=== PATIENT | female | born 1970 | race Caucasian/White ===

== ENCOUNTER 2016-08-17 06:51 | Emergency (ER) | payer SELFPAY ==
[2016-08-17 07:17] VITALS: TEMP 98; BMI 49.0
--- NOTE | 2016-08-17 07:25 | EDPRACDOC ---
- General Information Chief Complaint: Flu-Like Symptoms Stated Complaint: COUGH Time Seen by Provider: 08/17/16 07:22 Information Source: Patient Home Medications: Home Medications Warfarin Sodium [Coumadin] 3 mg PO DAILY 09/03/15 Multivitamin [Multivitamins] 2 each PO DAILY 12/24/15 Albuterol Sulfate [Proventil Hfa] 200 puff INH Q6 #1 inhaler 12/26/15 Levofloxacin [Levaquin] 750 mg PO DAILY #5 tablet 12/26/15 Allergies/Adverse Reactions: Allergies Allergy/AdvReac Type Severity Reaction Status Date / Time No Known Allergies Allergy Verified 08/17/16 07:17 - History of Present Illness Onset: 1 WEEK HPI: PT PRESENTS TO ED VIA AMBULANCE. C/O CHILLS SINCE LAST NIGHT. NO FEVER. NO PAIN. NO N/V OR SOB. PT REPORTS SHE IS SCARED. PT CALLED HER OB AND WAS TOLD TO COME TO ER. PT DELIVERED AT 27 WEEKS IN MARCH. HAS HAD 2 D&C'S. SOME TYPE OF BACTERIA CULTURED IN UTERUS. HAVING REPEATED BY HER OB. PT HAS CHRONIC LOWER ABDOMINAL PAIN SINCE DELIVERY. NO NEW URINARY SYMPTOMS. PT IS BREAST FEEDING. NO NEW BREAST PAIN. DOES HAVE YEAST ON BREASTS. ED Past Medical History - History Reviewed Yes Nurses notes reviewed and agree except as marked - Patient Medical History Respiratory History: Reports: Pneumonia (now), Pulmonary Embolism. Denies: COPD Psychological History: Denies: Depression, Substance Use Disorder - Family Medical History Reports: Hypertension (mother), Diabetes (mother type 2) - Social Medical History Smoking Status: Never smoker Social History: Denies: Substance Use Disorder EDM Review of Systems - Review of Systems ROS Negative Except as Marked: Yes All systems reviewed and were negative except as marked Constitutional: Chills. negative: Fever Eyes: No Symptoms Reported - Physical Exam Constitutional: Alert (Awake), No apparent distress Oriented to: Time, Person, Place Last recorded Vital Signs: Last Vital Signs Temp 98.0 F 08/17/16 07:13 Pulse 95 08/17/16 07:13 Resp 18 08/17/16 07:13 BP 155/89 08/17/16 07:13 Pulse Ox 95 08/17/16 07:13 Oxygen Pulse Oxygen Saturation 95 O2 Device Room Air Oxygen Flow Rate Fraction of Inspired Oxygen ( FIO2) - HEENT Head: Normal ( normocephalic) Eye Exam: Normal (PERRL, EOMI, Sclera white) Oropharynx: Normal (Pharynx:Moist without exudate,Gums-no swelling) Nose: No Symptoms Reported (septum midline) Neck: Normal (FROM, trachea at midline) - Respiratory/Cardiovascular Respiratory: Normal - CTA (BBS clear to auscultation without adventitious sounds ) Cardiovascular: Normal (RRR without murmur, gallop or rub) - GI Auscultation: Normal (NABS) Palpation: Normal (Soft,No rebound or guarding, non distended) Tenderness: Non tender Atkins's Sign: Negative - Musculoskeletal Back: Normal (Non-Tender) Extremities: Normal (Normal tone, Pulses 2+ No cyanosis or edema, FROM) - Integumentary Skin: Normal, Warm, Dry Lymphatics: Normal (no adenopathy) - Neurologic Memory Impaired: Normal Motor Function: Normal (Normal tone, Pulses 2+ No cyanosis or edema, FROM) Cranial Nerve: Normal (CN II-X11 intact sensation, strength 5/5) Cerebellar: Normal Mood Description: Normal Perception: Normal
--- NOTE | 2016-08-17 07:38 | EDPRACDOC ---
- General Information Chief Complaint: Flu-Like Symptoms Stated Complaint: COUGH Time Seen by Provider: 08/17/16 07:22 Information Source: Patient Home Medications: Home Medications Warfarin Sodium [Coumadin] 3 mg PO DAILY 09/03/15 Multivitamin [Multivitamins] 2 each PO DAILY 12/24/15 Albuterol Sulfate [Proventil Hfa] 200 puff INH Q6 #1 inhaler 12/26/15 Levofloxacin [Levaquin] 750 mg PO DAILY #5 tablet 12/26/15 Benzonatate [Tessalon Perle] 100 mg PO TID #30 capsule 08/17/16 Nitrofurantoin [Macrobid] 100 mg PO BID #10 cap 08/17/16 Allergies/Adverse Reactions: Allergies Allergy/AdvReac Type Severity Reaction Status Date / Time No Known Allergies Allergy Verified 08/17/16 07:17 - History of Present Illness Onset: 1 WEEK HPI: COUGHING, AND BECAUSE OF COUGH PT HAS HEADACHE. ABOUT 3 DAYS DURATION. YESTERDAY AND LAST NIGHT COULD BARELY SLEEP. THICK WHITISH SPUTUM. NO FEVER. DOES NOT SMOKE. H/O PE 5 YEARS AGO. FOLLOWED AT [facility]. ON COUMADIN. PT DENIES SOB. Shortness of Breath: None Cough: Reports: Productive, White ED Past Medical History - History Reviewed Yes Nurses notes reviewed and agree except as marked - Patient Medical History Respiratory History: Reports: Pneumonia (now), Pulmonary Embolism. Denies: COPD Psychological History: Denies: Depression, Substance Use Disorder - Family Medical History Reports: Hypertension (mother), Diabetes (mother type 2) - Social Medical History Smoking Status: Never smoker Social History: Denies: Substance Use Disorder EDM Review of Systems - Review of Systems ROS Negative Except as Marked: Yes All systems reviewed and were negative except as marked Constitutional: No Symptoms Reported Respiratory: Cough Cardiovascular: No Symptoms Reported Gastrointestinal: No Symptoms Reported Genitourinary: No Symptoms Reported Neurological: Headache Musculoskeletal: No Symptoms Reported Integumentary: No Symptoms Reported - Physical Exam Constitutional: Alert (Awake), No apparent distress Oriented to: Time, Person, Place Last recorded Vital Signs: Last Vital Signs Temp 98.0 F 08/17/16 07:13 Pulse 95 08/17/16 07:13 Resp 18 08/17/16 07:13 BP 155/89 08/17/16 07:13 Pulse Ox 95 08/17/16 07:13 Oxygen Pulse Oxygen Saturation 95 O2 Device Room Air Oxygen Flow Rate Fraction of Inspired Oxygen ( FIO2) - HEENT Head: Normal ( normocephalic) Eye Exam: Normal (PERRL, EOMI, Sclera white) Oropharynx: Normal (Pharynx:Moist without exudate,Gums-no swelling) Nose: No Symptoms Reported (septum midline) Neck: Normal (FROM, trachea at midline) - Respiratory/Cardiovascular Respiratory: Normal - CTA (BBS clear to auscultation without adventitious sounds ) Cardiovascular: Normal (RRR without murmur, gallop or rub) - GI Auscultation: Normal (NABS) Palpation: Normal (Soft,No rebound or guarding, non distended) Tenderness: Non tender Atkins's Sign: Negative - Musculoskeletal Back: Normal (Non-Tender) Extremities: Normal (Normal tone, Pulses 2+ No cyanosis or edema, FROM) - Integumentary Skin: Normal, Warm, Dry Lymphatics: Normal (no adenopathy) - Neurologic Memory Impaired: Normal Motor Function: Normal (Normal tone, Pulses 2+ No cyanosis or edema, FROM) Cranial Nerve: Normal (CN II-X11 intact sensation, strength 5/5) Cerebellar: Normal Mood Description: Normal Perception: Normal - Results 08/17/16 07:54 08/17/16 07:54 - EKG EKG #1 EKG Time: 07:55 -: Yes EKG interpreted by me Rate: bpm: 88 [place]: Normal Rhythm: NSR Block: None Hypertrophy: None ST: Normal Comments: NORMAL EKG Decision Time to Discharge: 09:03 - Departure Yes I personally saw and evaluated the patient. Disposition: Home Condition: Stable Final Diagnosis: Acute bronchitis UTI (urinary tract infection) Qualifiers: Urinary tract infection type: acute cystitis Hematuria presence: with hematuria Qualified Code(s): N30.01 - Acute cystitis with hematuria Instructions: Benzonatate (By mouth), Nitrofurantoin Combination (By mouth), Urinary Tract Infection in Women (ED), Acute Bronchitis (ED) Education/Counseling Given To: Patient Education/Counseling Given Regarding: Diagnosis Referrals: Karson Looney II, MD [Staff Physician] - One Week Prescriptions: Benzonatate [Tessalon Perle] 100 mg PO TID #30 capsule Nitrofurantoin [Macrobid] 100 mg PO BID #10 cap Additional Instructions: Problem: Acute bronchitis Urinary tract infection Goals: Decreased symptoms/improved condition. Interventions: Follow discharge instructions. Contact physician if condition worsens or does not improve. YOU WILL NEED CLOSER PT/INR CHECKS DUE TO BEING ON ANTIBIOTICS. RECHECK SATURDAY.
[2016-08-17 08:05] LABS: AUTOMATED BASOPHIL 0.1 % (0-2); AUTOMATED EOSINOPHIL 1.1 % (0-5); AUTOMATED MONOCYTE 9.8 % (3-10); MPV 8.3 fL (7.4-10.4)
[2016-08-17 08:16] LABS: BLOOD UREA NITROGEN 10 MG/DL (7-17); CALC CORRECTED 8.6 MG/DL (8.4-10.2); CALCIUM 8.5 MG/DL (8.4-10.2); CALCULATED OSMOLALITY 270 MOs/Kg (270-290); CHLORIDE 103 mEq/L (98-107); GLUCOSE 151 MG/DL (70-99); SODIUM LEVEL 139 mEq/L (137-146); TOTAL PROTEIN 8.1 G/DL (6.3-8.2)
[2016-08-17 08:22] LABS: PT-INR 1.5
[2016-08-17 08:23] LABS: LEUKOCYTES/URINE 2+ (NEGATIVE); NITRITE/URINE NEG (NEGATIVE); URINE OCCULT BLOOD 3+ (NEG/TRACE); WBC/URINE TNTC (0-5)
--- NOTE | 2016-08-17 08:31 | DIRPT ---
CLINICAL DATA: 45-year-old female with productive cough, headache and chills EXAM: CHEST 2 VIEW COMPARISON: Prior chest x-ray 12/24/2015 FINDINGS: The lungs are clear and negative for focal airspace consolidation, pulmonary edema or suspicious pulmonary nodule. No pleural effusion or pneumothorax. Cardiac and mediastinal contours are within normal limits. No acute fracture or lytic or blastic osseous lesions. The visualized upper abdominal bowel gas pattern is unremarkable. IMPRESSION: Negative chest x-ray. Electronically Signed By: Geovanni Sarabia M.D. On: 08/17/2016 08:28
[2016-08-17 09:22] VITALS: BP 150/70; PULSE 93
== END 2016-08-17 09:25 | disposition home or self-care (01) ==
LOC: ED 06:51
DX: J20.9 Acute bronchitis, unspecified (principal); N39.0 Urinary tract infection, site not specified
CPT/HCPCS: 36415; 71020; 80053; 81001; 83880; 84484; 85025; 85610; 85730; 87086; 93005; 99283